=== PATIENT | male | born 1960 | race Caucasian/White ===

== ENCOUNTER 2017-02-02 12:33 | Inpatient (IN) | payer BC, OTHER ==
[~2017-02-02] VITALS: Ht 180.3 cm; Wt 158.8 kg
--- NOTE | 2017-02-02 19:00 | NUR ---
Intake assessment Px seen in the intake office. Px is 56 y/o male, Alert and oriented x4. Px reported to be dependent on ETOH. NKA. On regular diet. Wishes to be on full code. Ambulatory, speech is clear and audible. Px appears to be anxious but cooperative. No PMHx but anxiety. No hx of seizure. Px doesnt take any home medications. VS as follows, JT=539/79, AZ= 98, RR=20, T= 96.9, O2 sat= 96%. Explained unit protocols, and verbalized understanding.
--- NOTE | 2017-02-02 19:17 | NUR ---
Admission Notes Admitted a 56 y/o, male at [facility] unit at 1917H for ETOH dependence. Body search and skin check done, no contraband nor skin issues noted. Px is standing at 5'11' tall with weight of 350 lbs. on a standing scale. BMI is 49. Px is cooperative during assessments. Oriented on floor unit and room. Px is following regular diet, NKA, and wishes to be on full code. Px is alert and oriented x4, ambulatory with steady gait. Speech is clear and audible. Denies any PMHx but anxiety. Appears to be anxious but cooperative. No SOB noted. Respirations are even and unlabored. Abdomen is soft, distended, bowel sounds are in all 4 quadrants. Last BM is today 02/02/2017. No complaints of pain. Mild hand tremors are noted. CIWA is 5. No suicide thoughts or attempt. No hx of seizures or fall. Px able to provide urine sample for drug screen. VS are the following BP= 135/90, MS= 90, RR= 18, O2sat= 96%, T= 97.3. Substance Abuse: 1. ETOH- Px has been drinking since he was 15 y/o. Drinks Vodka 1 liter daily for the past 3 weeks. Last intake is today 02/02/2017 around 10AM of Vodka 1 pint. Tx Hx: 1. [facility] August 2015 stayed for 30 days 2. [facility] September 2015 another 30 days 3. [facility] 2016 stayed for 8 days Px denies being hospitalized in the last 30 days. Longest sobriety was March 2016 for 6 months. Px reports increased anxiety and hand tremors if not influenced by ETOH. Px is non smoker. Px refused pneumonia vaccine. Flu is out of season. Px's primary doctor in [facility] is Dr. Dick Mullen. Px has PCP in [place] but can't recall the name. Urine drug screen came back positive for ETOH at 0.27. Px on fall precaution. All needs met. Safety precautions are in place, bed placed in lowest, side rails up 2x, call light within px's reach. Will continue to monitor.
[2017-02-02 20:00] VITALS: BP 135/90
--- NOTE | 2017-02-02 20:53 | NUR ---
Ativan STAT Dr. Berry seen and examined the px with order Ativan 1mg 2 tabs PO stat given at 2052H. Px tolerated, will continue to monitor.
[2017-02-02 20:56] LABS: *AMPHETAMINE, URINE NEGATIVE (NEGATIVE); *BARBITURATE, URINE NEGATIVE (NEGATIVE); *CANNABINOID, URINE NEGATIVE (NEGATIVE); *COCCAINE, URINE NEGATIVE (NEGATIVE); *OPIATE, URINE NEGATIVE (NEGATIVE); *PHENCYCLIDINE SCREEN,URINE NEGATIVE (NEGATIVE)
[2017-02-02 21:33] LABS: BASOPHILS % (AUTO) 0.5 % (0.0-2.0); HEMOGLOBIN 15.8 G/DL (14.0-18.0); LYMPHOCYTES # (AUTO) 0.5 K/UL (0.8-4.8); LYMPHOCYTES % (AUTO) 11.6 % (20.5-51.5); MEAN CORPUSCULAR HEMOGLOBIN 32.1 UUG (27.0-31.0); MEAN CORPUSCULAR HGB CONC 35 g/dL (32.0-37.0); MEAN CORPUSCULAR VOLUME 91.7 FL (82.0-92.0); MONOCYTES # (AUTO) 0.5 K/UL (0.1-1.30); NEUTROPHILS # (AUTO) 3.7 K/UL (1.8-8.9); NEUTROPHILS % (AUTO) 75.9 % (38.5-71.5); PLATELET COUNT (AUTO) 79 K/UL (150-450); RED BLOOD CELL COUNT(AUTO) 4.91 MIL/UL (4.7-6.1); WHITE BLOOD COUNT (AUTO) 4.7 K/UL (4.0-11.2)
[2017-02-02 22:17] LABS: BILIRUBIN,TOTAL 1.9 mg/dL (0.2-1.0); CREATININE 0.8 mg/dL (0.6-1.3); MAGNESIUM 1.9 mg/dL (1.8-2.4); POTASSIUM 3.5 mmol/L (3.5-5.1); TOTAL PROTEIN, SERUM 7.5 g/dL (6.4-8.2)
[2017-02-02 22:38] LABS: BAND % (MANUAL) 10 % (0-10); LYMPHOCYTES % (MANUAL) 14 % (20-40); MONOCYTES % (MANUAL) 13 % (2-10); NEUTROPHILS % (MANUAL) 63 % (42-75)
[2017-02-03] VITALS (7 sets, daily range): BP systolic 134–189; BP diastolic 77–98
--- NOTE | 2017-02-03 00:05 | NUR ---
PRN meds Px complained of difficulty sleeping. CIWA 9 at 0000H. Ativan 1mg 1 tab, Benadryl 50 mg 1 cap, Clonidine 0.1mg given PO as PRN meds. BP= 139/80, CO= 104, RR= 19, T= 98.7, O2 sat= 97%. Px tolerated, will continue to monitor.
--- NOTE | 2017-02-03 00:59 | NUR ---
PRN Trazodone Px continue to struggle sleeping. Trazodone 50mg 1 tab given PO as PRN med. Px tolerated, will continue to monitor.
--- NOTE | 2017-02-03 03:25 | NUR ---
PRN meds Px continue to complained of difficulty of sleeping, burning and tingling sensation on both feet, increase anxiety, sweats noted and hand tremors. CIWA is 16. Ibuprofen 400mg 1 tab and Ativan 1 mg 2 tabs given PO as PRN meds. Will continue to monitor.
--- NOTE | 2017-02-03 03:30 | NUR ---
SpO2/Oxygen Therapy: Pt noted to be coughing and restless; upon assessment SpO2 on RA is 92% and HR 90. Pt placed on 2L O2 via NC and SpO2 increased to 96%. Pt reports that he has a C-PAP that he brought with him to [place], but that it requires adjustment. Lungs are CTA throughout. made aware.
--- NOTE | 2017-02-03 06:02 | NUR ---
Valium 10mg ONCE: Patient complains of restlessness, severe anxiety and agitation. Patient noted to be diaphoretic and bedding is damp. Pt noted with moderate tremor. CIWA is 18. Administered Valium 10mg ONCE. Will reassess in one hour. Addendum: 02/03/17 at 0638 by ARLEEN PHIPPS RN Medication administered by primary nurseJoseph.
--- NOTE | 2017-02-03 07:00 | NUR ---
End of Shift Notes Px a 56 y/o, male admitted for ETOH dependence. Px is following regular diet, NKA, and on full code. Ps is alert and oriented x4, ambulatory with steady gait. Speech is clear and audible. During the shift, Appears to be anxious but cooperative. During the shift Px complained of difficulty of sleeping, burning, pins and needles on both feet 4/10, increased anxiety and hand tremors. Ativan 1mg 1 tab, Benadryl 50mg 1 cap, Catapres 0.1mg 1 tab given PO as PRN meds at 0005. Trazodone 50mg 1 tab given PO as PRN at 0059. Ativan 1mg 2 tabs, and Motrin 400mg 1 tab given PO as PRN at 0325. Diazepam 10mg 1 tab given PO as PRN med at Px on fall precaution. All needs met. Safety precautions are in place, bed placed in lowest, side rails up 2x, call light within px's reach. Oral intake of 1L, voided 2x, No BM. Slept for 3.5 hrs. Latest CIWA 10. Will continue to monitor.
--- NOTE | 2017-02-03 07:01 | NUR ---
Valium Reassessment: Pt reports mild decrease in anxiety, and decrease in agitation and restlessness. Pt continues to reports diaphoresis and and tremor. CIWA decreased from 18 to 10 one hour after Valium 10mg administration.
--- NOTE | 2017-02-03 07:32 | NUR ---
Start of Shift Notes: Received patient in his room. Alert and oriented x 4. Verbally responsive. Appears anxious with mild sweats and noted with tremors. Respirations even and unlabored. No SOB noted. Skin warm and dry to touch. Abdomen soft and non-distended with (+) BS in all 4 quadrants. No complains of N/V/D or constipation noted. No complains of abdominal discomfort noted. Bladder non-distended. Voids independently. Ambulatory ad kym with steady gait. Patient is a 56 year old male admitted for ETOH dependence. Prior to admission, patient was using 1L of Vodka daily x 3 weeks. Has past medical hx of anxiety and sleep apnea. Uses CPAP at home. O2 saturation at 95% RA. NKA. FULL CODE. Regular diet. Educated patient on his current plan of care and his medication regimen. Encouraged oral fluid intake and encouraged group participation to learn new skills to prevent relapse. Will continue to monitor.
--- NOTE | 2017-02-03 08:18 | NUR ---
Clonidine 0.1mg PO given: Patient noted with BP 189/98, gross tremors, sweating and with noted anxiety and mild agitation. Medicated patient with Clonidine 0.1mg PO as ordered. Will monitor for effectiveness.
--- NOTE | 2017-02-03 09:18 | NUR ---
Re-assessment: Patient's BP 150/83. Less sweating, less anxiety and less tremors noted.
--- NOTE | 2017-02-03 11:05 | NUR ---
ENDORSEMENT Rcvd endorsement from dipti, client is a 56 y/o male for alcohol withdrawal. last CIWA 13, client received a one time dose of Ativan 2mg, need to be reassessed. Client is in room, a/o x 4, he is in RA c/ spO2 @ 95%, he presents with anxious mood, flat affect, gross tremors and clammy skin noted. HOB 45 degrees. Call light within reach. Side rails x 2 up/padded. Will continue to monitor.
--- NOTE | 2017-02-03 11:33 | NUR ---
Reassessment One time Ativan 2mg CIWA 9, client appears less anxious. Will continue to monitor.
--- NOTE | 2017-02-03 12:08 | NUR ---
PRN Zofran 4mg SL for nausea, no episodes of emesis. Call light within reach. Will continue to monitor.
--- NOTE | 2017-02-03 13:08 | NUR ---
Reassessment PRN Zofran 4mg SL effective, relief from nausea. Call light within reach. Will continue to monitor.
--- NOTE | 2017-02-03 18:15 | NUR ---
PRN Ativan 1mg administered for anxiety, agitation, flushed face, clammy skin, gross tremors CIWA 14, and Clonidine 0.1mg for increased Bp 168/103. Call light within reach. Will continue to monitor.
--- NOTE | 2017-02-03 19:15 | NUR ---
END OF SHIFT & Reassessment PRN Ativan 1mg, Clonidine 0.1mg Endorsed client to incoming nurse, client is a 56 y/o male for alcohol withdrawal. last CIWA 11 @ 1700. Client received a one time dose of Ativan 2mg for CIWA 13, after an hour CIWA 9, client appears less anxious, PRN Zofran 4mg for nausea, PRN Clonidine 0.1mg for BP 189/98, effective BP 150/83. PRN Ativan 1mg administered for anxiety, agitation, flushed face, clammy skin, gross tremors CIWA 14, and Clonidine 0.1mg for increased Bp 168/103, noted effective, CIWA 8, bp 149/90. Client is in bed, HOB @ 45, he is a/o x 4. Client is on 5 day Ativan taper for management of withdrawal symptoms, tolerating well. Adequate PO fluid intake 2500mL, void x 3, stool x 2. Client was not compliant with group therapy d/t withdrawal symptoms. Call light within reach. Side rails x 2 up/padded. Will continue to monitor.
--- NOTE | 2017-02-03 21:00 | NUR ---
Start of Shift Notes Received a 56 y/o, male admitted for ETOH dependence. Px is following regular diet, NKA, and on full code. Px is alert and oriented x4, ambulatory with unsteady gait as assessed. Speech is clear and audible. Appears to be anxious but cooperative. Hand tremors are still evident.respirations are even unlabored. Suggested to take shower. Safety precautions are in place, bed placed in lowest, side rails up 2x, call light within px's reach. CIWA 11. Will continue to monitor
--- NOTE | 2017-02-03 22:00 | NUR ---
Bed transfer Px was transferred to room 329 A for the easier access of the bathroom via px's bed. Will continue to monitor.
--- NOTE | 2017-02-03 22:34 | NUR ---
PRN Ativan Dr. Berry seen and examined the px, with order to give Ativan 1mg 2 tabs PO as PRN, carried out. Will continue to monitor.
[2017-02-04] VITALS (7 sets, daily range): BP systolic 134–172; BP diastolic 71–111
--- NOTE | 2017-02-04 | NUR ---
BiPAP Px was placed on BiPAP by RT. Px can't tolerate the BiPAP mask, px keeps on taking off the mask. BiPAP was discontinued by RT around 0300. Px was put to O2 inhalation at 2 LPM via NC.
--- NOTE | 2017-02-04 03:00 | NUR ---
ICP Px is placed on ICP for both legs with the VTE risk score of 3. We'll continue to monitor.
--- NOTE | 2017-02-04 04:00 | NUR ---
CIWA deferral CIWA deferred due that the px is sleeping, to assess if the px is awake per doctor's order. Px is on O2 at 2 LPM. We'll continue to monitor.
--- NOTE | 2017-02-04 06:29 | NUR ---
PRN Ativan Px reports anxiety was lessened. Px slept for 6hrs but on and off. Px feels heightened and requested to take medicine for him to sleep again. Ativan 1mg, 1 tab given PO as PRN med. We'll continue to monitor.
--- NOTE | 2017-02-04 07:11 | NUR ---
End of Shift Notes Px is a 56 y/o, male admitted for ETOH dependence. Px is following regular diet, NKA, and on full code. During the shift, Px is alert and oriented x4, ambulatory but with unsteady gait as assessed. Non pitting edema noted on right foot. Appears to be anxious but cooperative. Hand tremors are still evident. Dr. Berry seen and examined, Ativan 1mg, 2 tabs given PO as PRN meds at 2234H. Px was placed to BiPAP machine at around 0000H. Px cant tolerate the BiPAP mask, RT discontinued and px continue on O2 inhalation at 2 LPM via NC and px was placed on ICP for both legs at around 0300 for VTE risk score of 3. Oral intake of 1L, voided 2x, No BM. Slept for 6 hrs. Px requested medicine to make him sleep, Atican 1mg, 1 tab given PO as PRN at 0629. Safety precautions are in place, bed placed in lowest, side rails up 2x with pads, call light within px's reach. Last CIWA 7. Will continue to monitor.
--- NOTE | 2017-02-04 07:45 | NUR ---
START OF SHIFT NOTE. 56 y/o, male admitted for ETOH dependence. History of anxiety, sleep apnea with use of CPAP at night. ON regular diet, NKA, and on full code. Received report from night RN with patient noted to be unsteady on feet and with some confusion. Placed on one to one for safety. Pt with tremors, states had hallucinations last night. Pedal edema 3-4+. Elevated legs on 2 pillows. SCD's on. Bed in low position, call light within reach, padded side rails, safety measures in place. Will continue to monitor.
[2017-02-04 08:26] LABS: BASOPHILS % (AUTO) 1.2 % (0.0-2.0); EOSINOPHILS % (AUTO) 1.4 % (0.0-7.0); HEMATOCRIT 42.5 % (40-50); HEMOGLOBIN 14.2 G/DL (14.0-18.0); LYMPHOCYTES # (AUTO) 0.5 K/UL (0.8-4.8); LYMPHOCYTES % (AUTO) 17.9 % (20.5-51.5); MEAN CORPUSCULAR HEMOGLOBIN 30.9 UUG (27.0-31.0); MEAN CORPUSCULAR HGB CONC 33 g/dL (32.0-37.0); MEAN CORPUSCULAR VOLUME 92.7 FL (82.0-92.0); MONOCYTES # (AUTO) 0.4 K/UL (0.1-1.30); MONOCYTES % (AUTO) 14.8 % (0.0-11.0); NEUTROPHILS # (AUTO) 2.1 K/UL (1.8-8.9); NEUTROPHILS % (AUTO) 64.7 % (38.5-71.5); RED BLOOD CELL COUNT(AUTO) 4.59 MIL/UL (4.7-6.1)
[2017-02-04 09:08] LABS: BILIRUBIN,DIRECT 0.7 mg/dL (0.0-0.2); BILIRUBIN,TOTAL 2.7 mg/dL (0.2-1.0); CREATININE 0.8 mg/dL (0.6-1.3); MAGNESIUM 1.4 mg/dL (1.8-2.4); POTASSIUM 4.1 mmol/L (3.5-5.1); TOTAL PROTEIN, SERUM 7.4 g/dL (6.4-8.2)
[2017-02-04 09:40] LABS: PLATELET COUNT (AUTO) 46 K/UL (150-450)
[2017-02-04 09:46] LABS: BAND % (MANUAL) 7 % (0-10); EOSINOPHILS % (MANUAL) 2 % (0-8); LYMPHOCYTES % (MANUAL) 18 % (20-40); MONOCYTES % (MANUAL) 16 % (2-10); NEUTROPHILS % (MANUAL) 57 % (42-75)
--- NOTE | 2017-02-04 10:32 | NUR ---
PRN ADMINISTRATION Pt complaint of nausea. Given Zofran SL PRN.
[2017-02-04 11:08] LABS: HEPATITIS B SURFACE AG Negative (Negative)
--- NOTE | 2017-02-04 11:32 | NUR ---
PRN REASSESSMENT Pt denies nausea after dose of Zofran SL.
--- NOTE | 2017-02-04 18:11 | NUR ---
PRN GIVEN Pt c/o nausea after dinner. No episodes of vomiting was reported. Zofran 4mg SL PRN was given. Will continue to monitor.
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
--- NOTE | 2017-02-04 19:10 | NUR ---
END OF SHIFT NOTE. 56 y/o, male admitted for ETOH dependence. History of anxiety, sleep apnea with use of CPAP at night. ON regular diet, NKA, and on full code. Continues to be unsteady on feet and on one to one for safety. Pt with tremors, denies hallucinations. Oriented x 2 at 0800 and oriented x 3 at 1200 and 1600. Pedal edema 3-4+. Continued to keep legs elevated on 2 pillows when lying down. SCD's on. Using Bipap during nap times. 1610, complaint of nausea, however ate 100 percent dinner. Gave Zofran SL. Will reassess at 1710 for effect. Tolerating Ativan taper with the following scores: COWS score 15 at 0800, COWS score 10 at 1200 and at 1600. Good appetite with intake 100 percent at breakfast and dinner, 50 percent at lunch. Intake 1250 cc, 3 voids, 1 BM. Attended group from 1530 to 1630 via wheelchair with one person assist. Bed in low position, call light in reach, side rails padded, safety measures observed. Report given to night RN. Addendum: 02/05/17 at 1250 by SAMUEL REYES RN ERROR IN DOCUMENTATION Correction CIWA score was 15 at 0800, and 10 at 1200 and 1600. RN incorrectly labeled scores as a COWS score. Also, PRN Zofran was given at 1811 and not at 1610.
--- NOTE | 2017-02-04 19:15 | NUR ---
PRN MEDICATION REASSESSMENT Given Zofran SL for nausea at 1610. Pt currently sleeping on Bipap.
--- NOTE | 2017-02-04 19:20 | NUR ---
Start of Shift Note: Patient is a 56 y/o male admitted on 02/02/17 for ETOH dependence. Patient reported drinking 1 liter of vodka daily for 3 weeks. Patient has PMHx of Anxiety and Sleep Apnea. Pt uses a CPAP machine at night. Patient is on a regular diet with no known food and drug allergies. Full Code status. Patient is on a 5-day Ativan taper and tolerating well. Last CIWA is 10. Pt was given PRN Zofran x2 for nausea and were effective. Patient continues to be on a 1:1 supervision d/t unsteady gait. Patient is alert & oriented to name, place & situation. Patient denies pain/discomfort. Patient presented with complaints of sweating, restlessness and appears to be anxious. Pt with moderate anxiety and noted with bilateral hand tremors. Patient currently awake and denies shortness of breath at this time. CPAP machine at bedside. No nausea noted. Patient denies any hallucinations. Safety measures in place. Bed locked in lowest position. Both side rails up. Call light within pt's reach. Will continue to monitor patient.
--- NOTE | 2017-02-04 23:12 | NUR ---
PRN Hydralazine Patient noted with B/P of 172/96 SC 84. PRN Hydralazine administered as ordered. Will continue to monitor.
[2017-02-05] VITALS (7 sets, daily range): BP systolic 121–156; BP diastolic 71–99
--- NOTE | 2017-02-05 00:12 | NUR ---
PRN Reassessment VS Rechecked. B/P 136/85 NH 91 noted. Patient asleep with CPAP connected to patient. Patient not in any s/s of distress. Will continue to monitor patient.
--- NOTE | 2017-02-05 01:42 | NUR ---
PRN Ativan Patient presented with gross tremors, moderate anxiety & sweating. CIWA 9 noted. No shortness of breath noted. PRN Ativan 1mg administered as ordered. Will reassess in 1 hour. Will continue to monitor patient.
--- NOTE | 2017-02-05 02:25 | NUR ---
Pt requested to be removed off CPAP at this time and is now on room air. No resp. distress noted at this time.
--- NOTE | 2017-02-05 02:42 | NUR ---
PRN Reassessment Pt still noted with gross tremors. Pt complained of nausea with no episode of vomiting & slight decrease in anxiety noted. CIWA 9 still noted. Will continue to monitor.
--- NOTE | 2017-02-05 02:44 | NUR ---
PRN Zofran Patient complains of nausea with no episode of vomiting. PRN Zofran administered SL as ordered. Will reassess in 1 hour.
--- NOTE | 2017-02-05 03:50 | NUR ---
PRn Ativan & Zofran Reassessment Pt appears restless in bed. Patient still complains of anxiety & slight sweating. Pt noted with fine tremors. No hallucinations noted. Pt verbalized improved nausea after Zofran administration. CIWA 6 noted at this time. PRN Ativan 1mg administered as ordered. Will continue to monitor.
--- NOTE | 2017-02-05 04:24 | NUR ---
PRN Robitussin Patient noted with non productive cough. PRN Robitussin administered as ordered. Will reassess for effectiveness of medication. Will continue to monitor.
--- NOTE | 2017-02-05 05:24 | NUR ---
Pt asleep in bed with CPAP on at prescribed settings. No s/s of distress noted. No coughing noted at this time. Pt continues on a 1:1 supervision. Will continue to monitor patient.
--- NOTE | 2017-02-05 06:11 | NUR ---
PRn Hydralazine & Tessalon Patient still noted with non-productive cough. PRN Tessalon administered as ordered. Vitals checked and noted with a B/P of 152/92, VA 100. Pt also given PRN Hydralazine as ordered. Will reassess in 1 hour. Will continue to monitor patient.
--- NOTE | 2017-02-05 07:24 | NUR ---
End of Shift Note: Patient is a 56 y/o male admitted on 02/02/17 for ETOH dependence. Patient reported drinking 1 liter of vodka daily for 3 weeks. Patient has PMHx of Anxiety and Sleep Apnea. Pt uses a CPAP machine at night. Patient is on a regular diet with no known food and drug allergies. Full Code status. Patient is on a 5-day Ativan taper and tolerating well. Last CIWA is 6 @ 0400. Pt was given PRN Ativan 2x, Hydralazine 2x, Zofran, Robitussin & Tessalon during my shift. Patient remains compliant with medications and treatment plan. Pt still noted to be unsteady and continues on a 1:1 supervision for safety. Pt continues to be on CPAP at night to maintain O2Sat >95%. Edema noted on both lower extremities, SCD on and keep lower extremities elevated while in bed until edema subsides. Pt stable at this time. All needs have been met. All safety measures in place per hospital policy. Bed in lowest position, side rails up x2, call-light within reach. Pt slept for intermittently for a total of 5 hours. Pt consumed 1000 ml of fluids. Voided 4x with 1x bowel movement. All needs attended & met. Safety measures in place. Will continue to monitor patient.
[2017-02-05 07:30] LABS: BASOPHILS % (AUTO) 0.5 % (0.0-2.0); BILIRUBIN,DIRECT 1.3 mg/dL (0.0-0.2); BILIRUBIN,TOTAL 2.4 mg/dL (0.2-1.0); CREATININE 0.9 mg/dL (0.6-1.3); EOSINOPHILS % (AUTO) 1.1 % (0.0-7.0); HEMATOCRIT 43.1 % (40-50); HEMOGLOBIN 14.8 G/DL (14.0-18.0); LYMPHOCYTES # (AUTO) 0.6 K/UL (0.8-4.8); LYMPHOCYTES % (AUTO) 16.9 % (20.5-51.5); MAGNESIUM 1.5 mg/dL (1.8-2.4); MEAN CORPUSCULAR HEMOGLOBIN 31.7 UUG (27.0-31.0); MEAN CORPUSCULAR HGB CONC 34 g/dL (32.0-37.0); MEAN CORPUSCULAR VOLUME 92.2 FL (82.0-92.0); MONOCYTES # (AUTO) 0.5 K/UL (0.1-1.30); MONOCYTES % (AUTO) 12.7 % (0.0-11.0); NEUTROPHILS # (AUTO) 2.6 K/UL (1.8-8.9); NEUTROPHILS % (AUTO) 68.8 % (38.5-71.5); PHOSPHOROUS 3.6 mg/dL (2.5-4.9); POTASSIUM 3.6 mmol/L (3.5-5.1); RED BLOOD CELL COUNT(AUTO) 4.67 MIL/UL (4.7-6.1); TOTAL PROTEIN, SERUM 7.8 g/dL (6.4-8.2); WHITE BLOOD COUNT (AUTO) 3.7 K/UL (4.0-11.2)
[2017-02-05 07:47] LABS: PLATELET COUNT (AUTO) 47 K/UL (150-450)
--- NOTE | 2017-02-05 08:00 | NUR ---
START OF SHIFT NOTE 56 y/o, male admitted for ETOH dependence. History of anxiety, sleep apnea with use of CPAP at night. ON regular diet, NKA, and on full code. Received report from night. Pt continues on one to one monitoring for safety. Pt with hand tremors, denies hallucinations. Oriented x3. Pt requesting cough medicine, states sputum clear. RN to follow up with time of last dose of PRN cough medications. Bed in low position, call light within reach, padded side rails, safety measures in place. Will continue to monitor.
[2017-02-05 08:38] LABS: BAND % (MANUAL) 9 % (0-10); EOSINOPHILS % (MANUAL) 1 % (0-8); LYMPHOCYTES % (MANUAL) 17 % (20-40); MONOCYTES % (MANUAL) 12 % (2-10); NEUTROPHILS % (MANUAL) 61 % (42-75)
--- NOTE | 2017-02-05 10:43 | NUR ---
Therapist prompted client about group times. Client stated he would attend both groups if he feels well.
--- NOTE | 2017-02-05 11:04 | NUR ---
PRN MEDICATION ADMINISTRATION Pt complaint of nausea. Given Zofran SL.
--- NOTE | 2017-02-05 12:04 | NUR ---
PRN MEDICATION REASSESSMENT RN assessing for effect of Zofran for nausea. Pt sleeping on Bipap.
--- NOTE | 2017-02-05 13:16 | NUR ---
PRN MEDICATION ADMINISTRATION Pt with persistent cough. Given Mu aguirre.
--- NOTE | 2017-02-05 13:23 | NUR ---
PRN MEDICATION ADMINISTRATION Blood pressure 130/98. Dr. Berry notified and hydralazine prn dose Oked by .
--- NOTE | 2017-02-05 14:16 | NUR ---
PRN MEDICATION REASSESSMENT Pt with decreased cough post dose of Tessalon perles.
--- NOTE | 2017-02-05 16:55 | NUR ---
LARA [address] Berry, Ativan 2 mg given instead of the scheduled 1 mg Ativan.
--- NOTE | 2017-02-05 16:55 | NUR ---
PRN MEDICATION ADMINISTRATION Pt complaint of cold symptoms of cough and headache. Gave Motrin and Robitussin.
--- NOTE | 2017-02-05 17:55 | NUR ---
PRN MEDICATION REASSESSMENT Pt was given Motrin and Robitussin for cold and cough symptoms. Pt now sleeping with CPAP in place.
--- NOTE | 2017-02-05 19:15 | NUR ---
Start of Shift Note: Patient is a 56 y/o male admitted on 02/02/17 for ETOH dependence. Patient reported drinking 1 liter of vodka daily for 3 weeks. Patient has PMHx of Anxiety and Sleep Apnea. Pt uses a CPAP machine at night. Patient is on a regular diet with no known food and drug allergies. Full Code status. Patient is on a 5-day Ativan taper and tolerating well. Last CIWA is 15 @ 1600. Pt was given PRN Hydralazine, Tessalon, Zofran, Robitussin & Motrin during day shift. Patient continues to be on a 1:1 supervision for safety. Patient is alert & oriented to name, place & situation. Patient denies pain/discomfort. Patient currently laying in bed with CPAP on. Pt noted with moderate anxiety ang mild agitationand noted with bilateral hand tremors. Pt denies any pain/discomfort at this time. No nausea noted. Patient denies any hallucinations. Safety measures in place. Bed locked in lowest position. Both side rails up. Call light within pt's reach. Will continue to monitor patient.
--- NOTE | 2017-02-05 19:38 | NUR ---
END OF SHIFT NOTE 56 y/o, male admitted for ETOH dependence. History of anxiety, sleep apnea with use of CPAP at night. ON regular diet, NKA, and on full code. Received report from night. Pt continues on one to one monitoring for safety. BP 130/98 at 1200, given hydralazine prn at 1323. At 1530, BP 156/99, however pt was exerting himself to get out of bed at time of measurement. Pt was given scheduled clonidine at 1530. At 1630, BP 134/85. CIWA [address] Berry notified. Per , pt received 2 mg Ativan po rather than the scheduled 1 mg Ativan po. 1800, pt sleeping with CPAP. 1900 call light in reach, bed low in position, safety measures in place. Report given to night RN.
--- NOTE | 2017-02-05 21:26 | NUR ---
PRN Tessalon Patient noted with a productive cough. PRN Tessalon administered as ordered. Will continue to monitor patient.
[2017-02-06] VITALS: BP 118/75
[2017-02-06 04:00] VITALS: BP_SYST 104; BP_SYST 136; BP_DIAS 66; BP_DIAS 77
--- NOTE | 2017-02-06 06:15 | NUR ---
PRN Robitussin & Zofran Patient complains of nausea & has been coughing. PRN Robitussin and Zofran administered as ordered. Will continue to monitor.
[2017-02-06 06:57] LABS: MAGNESIUM 1.8 mg/dL (1.8-2.4); POTASSIUM 3.4 mmol/L (3.5-5.1)
--- NOTE | 2017-02-06 07:15 | NUR ---
PRN Reassessment Patient verbalized improved nausea & decrease in coughing noted. Will continue to monitor patient.
--- NOTE | 2017-02-06 07:26 | NUR ---
End of Shift Note: Pt had an uneventful night. Pt continues on his Ativan taper and tolerating well. Last CIWA is 8. Pt was given PRN Tessalon and Robitussin for cought and Zofran for nausea during my shift. Patient remained stable and vitals remained WNL. Pt slept well for a total of 7 hours. Pt is on CPAP while asleep. Pt continues on a 1:1 supervision for unsteady gait. Pt remained compliant with medications and treatment. Pt slept for a total of 7 hours. Pt consumed 1237 ml of fluids. Voided 3x with 1x bowel movement. All needs have been met. All safety measures in place per hospital policy. Bed in lowest position, side rails up x2, call-light within reach. Will continue to monitor.
[2017-02-06 08:00] VITALS: BP 153/93
--- NOTE | 2017-02-06 08:00 | NUR ---
START OF SHIFT NOTE Received report from night nurse, 56 year old male admitted for ETOH dependence. Patient reported drinking 1 liter of vodka daily for 3 weeks. Patient has PMH of Anxiety and Sleep Apnea. Pt uses a CPAP machine at night. Patient is cont on a 5-day Ativan taper. Per endorsement pt received PRN Zofran/Robitussin/Tessalon effective per night nurse. Received pt alert oriented x4, skin intact warm and dry to touch. Educated pt with plan of the day and medications regimen with good verbal understanding. All safety measures in place, Call light within reach. Will cont to monitor.
[2017-02-06 08:10] LABS: HEMATOCRIT 42.7 % (40-50); HEMOGLOBIN 14.6 G/DL (14.0-18.0); MEAN CORPUSCULAR HEMOGLOBIN 31.7 UUG (27.0-31.0); MEAN CORPUSCULAR VOLUME 92.9 FL (82.0-92.0); WHITE BLOOD COUNT (AUTO) 3.4 K/UL (4.0-11.2)
[2017-02-06 08:11] LABS: MEAN CORPUSCULAR HGB CONC 34 g/dL (32.0-37.0)
[2017-02-06 08:12] LABS: NEUTROPHILS % (AUTO) 71.3 % (38.5-71.5); PLATELET COUNT (AUTO) 61 K/UL (150-450)
[2017-02-06 08:13] LABS: BASOPHILS % (AUTO) 0.3 % (0.0-2.0); MONOCYTES % (AUTO) 16.4 % (0.0-11.0)
[2017-02-06 08:15] LABS: LYMPHOCYTES # (AUTO) 0.4 K/UL (0.8-4.8); MONOCYTES # (AUTO) 0.6 K/UL (0.1-1.30); NEUTROPHILS # (AUTO) 2.4 K/UL (1.8-8.9)
[2017-02-06 10:31] LABS: BAND % (MANUAL) 9 % (0-10); LYMPHOCYTES % (MANUAL) 15 % (20-40); MONOCYTES % (MANUAL) 7 % (2-10); NEUTROPHILS % (MANUAL) 69 % (42-75)
[2017-02-06 12:00] VITALS: BP 160/100
--- NOTE | 2017-02-06 12:49 | NUR ---
PRN HYDRALAZINE Pt's blood pressure noted 160/100, HR-97. PRN Hydralazine 50mg Po administered as ordered. Will cont to monitor for effectiveness.
--- NOTE | 2017-02-06 13:49 | NUR ---
HYDRALAZINE REASSESSMENT Upon reassessment B/P /95, HR-92. Medication effective.
[2017-02-06 16:00] VITALS: BP 148/90
--- NOTE | 2017-02-06 19:08 | NUR ---
END OF SHIFT NOTE Pt noted with elevated blood pressure 160/100. Pt was given PRN Hydralazine 50mg Po effective 148/95. pt cont with Ativan taper tolerating well. Pt able to walk independently with steady gait. Pt still cont with 1:1 for safety. Vital signs WNL. Pt attend group and activities. Encourage Po fluids. last CIWA-6. All safety measures in place, call light within reach. Pt endorsed to night nurse in stable condition.
--- NOTE | 2017-02-06 19:15 | NUR ---
START OF SHIFT Received 56 year old male admitted on 02/02/17 for ETOH dependency. Pt is full code with NKA. He reports a PMHx of anxiety, sleep apnea which he uses CPAP at night. He reports using ETOH (vodka) 1L daily for 3 weeks. Last dose was 1 pint on 02/02/17. He is placed on 5 day Ativan taper and tolerating well. Per endorsement, pt noted with increased BP. He received Hydralazine 50 mg. He is on 1:1 For unsteady gait. Pt is alert and oriented x4, complains of fatigue and cough. Safety measures in place. Will monitor.
[2017-02-06 20:00] VITALS: BP 150/104
--- NOTE | 2017-02-06 21:06 | NUR ---
PRN ROBITUSSIN Pt complains of cough. PRN Robitussin administered as ordered. Will monitor effectiveness.
--- NOTE | 2017-02-06 22:06 | NUR ---
PRN ROBITUSSIN REASSESSMENT PRN medication effective. No complaints of coughing noted. Will continue to monitor.
[2017-02-07] VITALS: BP 108/85
--- NOTE | 2017-02-07 | NUR ---
CIWA DEFERRED CIWA deferred d/t pt lying in bed with eyes closed noted to be asleep. Safety measures in place. Will monitor.
[2017-02-07 04:00] VITALS: BP 122/75
--- NOTE | 2017-02-07 04:00 | NUR ---
CIWA DEFERRED CIWA deferred d/t pt lying in bed with eyes closed noted to be asleep. Safety measures in place. Will monitor.
--- NOTE | 2017-02-07 07:16 | NUR ---
END OF SHIFT Pt is a 56 year old male admitted on 02/02/17 for ETOH dependency. Pt is full code with NKA. He reports a PMHx of anxiety, sleep apnea which he uses CPAP at night. He continues on 5 day Ativan taper and tolerating well. He continues on 1:1 for unsteady gait. At 2103 he received PRN Robitussin. He slept a total of 8 hrs, Intake: 1390 mL, Void: x3, BM:x2, CIWA:6. Pt remains alert and oriented x4, complains of fatigue and cough. Safety measures in place. Endorsed to oncoming shift.
[2017-02-07 08:00] VITALS: BP 121/74
--- NOTE | 2017-02-07 08:05 | NUR ---
START OF SHIFT NOTE Received report from night nurse, 56 year old male admitted for ETOH dependence. Patient reported drinking 1 liter of vodka daily for 3 weeks. Patient has PMH of Anxiety and Sleep Apnea. Pt uses a CPAP machine at night. Patient is cont on a 5-day Ativan taper. Per endorsement pt received PRN Robitussin effective per night nurse, slept for 8 hours, last CIWA-6. Received pt alert oriented x4, skin intact warm and dry to touch. Educated pt with plan of the day and medications regimen with good verbal understanding. All safety measures in place, Call light within reach. Will cont to monitor.
[2017-02-07 08:34] LABS: HEMATOCRIT 43.8 % (40-50); HEMOGLOBIN 14.6 G/DL (14.0-18.0); MEAN CORPUSCULAR HEMOGLOBIN 31.3 UUG (27.0-31.0); MEAN CORPUSCULAR HGB CONC 33 g/dL (32.0-37.0); MEAN CORPUSCULAR VOLUME 93.6 FL (82.0-92.0); PLATELET COUNT (AUTO) 82 K/UL (150-450); RED BLOOD CELL COUNT(AUTO) 4.68 MIL/UL (4.7-6.1); WHITE BLOOD COUNT (AUTO) 3.4 K/UL (4.0-11.2)
[2017-02-07 08:35] LABS: LYMPHOCYTES % (AUTO) 24.8 % (20.5-51.5); NEUTROPHILS % (AUTO) 47.1 % (38.5-71.5)
[2017-02-07 08:36] LABS: BASOPHILS % (AUTO) 0.6 % (0.0-2.0); EOSINOPHILS # (AUTO) 0.1 K/uL (0.0-0.7); EOSINOPHILS % (AUTO) 3.7 % (0.0-7.0); LYMPHOCYTES # (AUTO) 0.8 K/UL (0.8-4.8); MONOCYTES # (AUTO) 0.8 K/UL (0.1-1.30); MONOCYTES % (AUTO) 23.8 % (0.0-11.0); NEUTROPHILS # (AUTO) 1.6 K/UL (1.8-8.9)
[2017-02-07 08:58] LABS: BILIRUBIN,DIRECT 0.7 mg/dL (0.0-0.2); BILIRUBIN,TOTAL 1.4 mg/dL (0.2-1.0); CREATININE 0.7 mg/dL (0.6-1.3); MAGNESIUM 2.3 mg/dL (1.8-2.4); POTASSIUM 3.5 mmol/L (3.5-5.1); TOTAL PROTEIN, SERUM 7.4 g/dL (6.4-8.2)
[2017-02-07 09:31] LABS: EOSINOPHILS % (MANUAL) 6 % (0-8); LYMPHOCYTES % (MANUAL) 35 % (20-40); MONOCYTES % (MANUAL) 4 % (2-10); NEUTROPHILS % (MANUAL) 55 % (42-75)
[2017-02-07 12:00] VITALS: BP 134/81
[2017-02-07 16:00] VITALS: BP 148/93
--- NOTE | 2017-02-07 17:49 | NUR ---
PRN VISTARIL Pt was c/o of anxiety and agitation, Pt provided with non pharmacological intervention with no relief. PRN Vistaril 50mg administered as ordered. Will cont to monitor for effectiveness.
--- NOTE | 2017-02-07 18:49 | NUR ---
VISTARIL REASSESSMENT Pt reported medication effective anxiety and agitation subside.
--- NOTE | 2017-02-07 19:20 | NUR ---
END OF SHIFT NOTE Pt presented with anxiety, agitation. Pt was given PRN Vistaril 50mg Po noted to be effective. Pt was evaluated by Physical therapist and pt was able to walk with steady gait. Pt was d/c from 1:1. Pt remained compliant with treatment and medications. Vital signs WNL. Encourage Po fluids. last COWS-5. All safety measures in place, call light within reach. Pt endorsed to night nurse in stable condition.
--- NOTE | 2017-02-07 19:21 | NUR ---
Start of shift note Received report from day shift nurse. Pt is a 56 yo male, A+Ox4, presenting to [facility] for ETOH dependence. Pt has NKA, is on Full Code status, and on Regular diet. Pt has HX of Anxiety and Sleep apnea with CPAP. Pt is on Fall and Seizure precautions. Pt is on 5 day Ativan taper, tolerated well. No s/s of distress noted at this time. Respirations even and unlabored. Will continue to monitor.
[2017-02-07 20:40] VITALS: BP 119/69
[2017-02-08 00:22] VITALS: BP 110/79
[2017-02-08 04:32] VITALS: BP 130/98
[2017-02-08 08:00] VITALS: BP 131/91
--- NOTE | 2017-02-08 08:00 | NUR ---
56 year old male, admitted to ETOH dependence. History of anxiety and sleep apnea with use of CPAP at home. Using CPAP at night while inpatient. Seizure and Fall precautions in place. Bed in low position, side rails up x 2 and padded. SCD's off due to Pt up and ambulating. States he had episode of auditory hallucination of talking with people who were not in the room, denies visual hallucination. Currently without hallucinations. RN will notify MD. Ambulating in [place], good appetite, denies nausea, moderate tremors, alert and oriented. Will continue to monitor.
[2017-02-08 12:00] VITALS: BP 133/87
--- NOTE | 2017-02-08 12:31 | NUR ---
PRN MEDICATION ADMINISTRATION Pt reports anxiety 12/29. Gave Vistaril PRN.
[2017-02-08 18:12] VITALS: BP 123/84
--- NOTE | 2017-02-08 19:24 | NUR ---
END OF SHIFT Pt 56 y/o male admitted etoh dependence. Pt alert and oriented to name, place, and time. [place]. Skin warm and slightly moist to touch. Respirations even and unlabored. Bilateral hand tremors noted slightly. Pt observed mostly isolative to room throughout the day. Pt attended group activity. Pt medication compliant and tolerated well. No ASE noted. Pt was seen by MD today. Bed on lowest position with side rails x2 up for safety. Call light within reach. No distress noted at this time.
[2017-02-08 20:00] VITALS: BP 127/80
--- NOTE | 2017-02-08 20:00 | NUR ---
Start of shift note Received a 56 y/o male, admitted 02/02/2017 for ETOH dependence. A+Ox4. Pt has NKA, is on Full Code status, and on Regular diet. Pt has HX of Anxiety and Sleep apnea with CPAP. Pt is on Fall and Seizure precautions. Pt is on 5 day Ativan taper, tolerated well. During the rounds at 2000, no complaints received. No s/s of distress noted at this time. Respirations even and unlabored. Well continue to monitor.
[2017-02-09] VITALS (8 sets, daily range): BP systolic 98–144; BP diastolic 53–85
--- NOTE | 2017-02-09 04:00 | NUR ---
CIWA deferred CIWA assessment deferred at 0000 and 0400 due to the px is sleeping, to assess if the px is awake per doctor's order. We'll continue to monitor.
--- NOTE | 2017-02-09 07:31 | NUR ---
End of shift note 56 y/o male, admitted for ETOH dependence. A+Ox4. Pt has NKA, is on Full Code status, and on Regular diet. Pt has HX of Anxiety and Sleep apnea with CPAP. Pt is on Fall and Seizure precautions. Pt is on 5 day Ativan taper, tolerated well. During the shift, no complaints received. No PRN meds given. No s/s of distress noted at this time. Respirations even and unlabored. Oral intake of 1,200 ml, voided 2x, No BM. Slept for 6 hrs. Well continue to monitor.
--- NOTE | 2017-02-09 08:00 | NUR ---
START OF SHIFT NOTE. 56 year of male admitted 02/02/17 to [facility] for alcohol use disorder/ alcohol dependence. History hypertension, acute alcoholic hepatitis, thrombocytopenia, leukopenia, hyperglycemia, mood disorder with possible bipolar disorder, obstructive sleep apnea on home CPAP. History of cocaine use disorder in remission. Received report from night RN. Per night RN report, Pt last CIWA 8 at 8 PM last night, no PRN medications given, used CPAP last night and slept 6 hours. On 729 patient rounds, Pt sleeping with CPAP in place, respirations regular and unlabored. Bed in low position and locked, side rails up x 2 and padded, call light in reach, seizure and fall precautions in place. Will continue to monitor.
--- NOTE | 2017-02-09 14:13 | NUR ---
PRN Robitussin Plain Sugar Free 200mg PO administered for cough, will continue to monitor. Call light within reach.
--- NOTE | 2017-02-09 15:13 | NUR ---
Reassessment PRN Robitussin Plain Sugar Free 200mg effective, client sound asleep, easy to arouse, RR 18 even, non-labored. Call light within reach.
[2017-02-09] MEDS ORDERED: OXCA150T5 PO (18:47)
[2017-02-09] MEDS ORDERED: HYDR12.517 PO (18:47)
[2017-02-09] MEDS ORDERED: GABA-536 PO (18:47)
[2017-02-09] MEDS ORDERED: LISI-603 PO (18:47)
[2017-02-09] MEDS ORDERED: HYDR-3895 PO (18:47)
[2017-02-09] MEDS ORDERED: OXCA300T4 PO (18:47)
[2017-02-09] MEDS ORDERED: AMLO5TAB2 PO (18:47)
[2017-02-09] MEDS ORDERED: CLON0.2T12 PO (18:47)
[2017-02-09] MEDS ORDERED: BUPR-96 PO (18:47)
[2017-02-09] MEDS ORDERED: TRAZ-144 PO (18:47)
[2017-02-09] MEDS ORDERED: THIA100T13 PO (18:50)
[2017-02-09] MEDS ORDERED: MULT-24 PO (18:50)
[2017-02-09] MEDS ORDERED: FOLI1TAB16 PO (18:50)
--- NOTE | 2017-02-09 19:04 | NUR ---
END OF SHIFT NOTE 56 year of male admitted 02/02/17 to [facility] for alcohol use disorder/ alcohol dependence. History hypertension, acute alcoholic hepatitis, thrombocytopenia, leukopenia, hyperglycemia, mood disorder with possible bipolar disorder, obstructive sleep apnea on home CPAP. History of cocaine use disorder in remission. CIWA 4 at 0939. CIWA 5 at 1222. CIWA 4 at 1630. Pt states he is discharging tomorrow to [facility]. Report given to night RN. Bed in low position and locked, side rails up x 2 and padded, call light in reach, seizure and fall precautions in place. Will continue to monitor.
--- NOTE | 2017-02-09 19:10 | NUR ---
Start of shift Patient received. Patient is in his bed, awake, alert and verbally responsive. Breathing even and non labored. No signs of pain or discomfort noted. Patient is a 56 year old male admitted on 02/02/17 for ETOH Dependence under the care of Dr. Berry. Patient verbalizes no known allergies, wishes to be full code, following a regular diet, placed on fall and seizure precautions, skin noted intact. Patient verbalizes past medical history of Anxiety and Sleep apnea. Patient currently uses personal CPap. Per endorsement, patient was given PRN Robitussin for cough with medication noted to be effective. Patient is set for discharge tomorrow 02/10/17. Last noted CIWA 4. All needs attended to promptly. Will continue to monitor.
--- NOTE | 2017-02-09 22:27 | NUR ---
PRN Medication Administration Patient noted to verbalize increased anxiety. PRN Vistaril administered as per order. Will continue to monitor.
--- NOTE | 2017-02-09 22:58 | NUR ---
Pt placed on Vision at this time settings CPAP PSV 12 and FIO2-30%. No resp. distress noted at this time. Pt to be monitored to be monitored throughout the shift. Pt apperats to be tolerating settings at this time.
--- NOTE | 2017-02-09 23:30 | NUR ---
PRN Medication Reassessment Patient is noted in bed, awake, alert and verbally responsive. Patient is able to verbalize medication was effective in minimizing anxiety. PRN Vistaril noted to be effective. Will continue to monitor.
[2017-02-10 00:15] VITALS: BP 134/79
[2017-02-10 04:05] VITALS: BP 131/69
--- NOTE | 2017-02-10 07:17 | NUR ---
End of Shift Patient is in bed sleeping. Breathing even and non labored. No signs of pain or discomfort noted. Patient is a 56 year old male admitted on 02/02/17 for ETOH Dependence under the care of Dr. Berry. No known allergies, Full Code, Regular Diet, placed on fall and seizure precautions, skin noted intact. Patient was given PRN Vistaril for increased anxiety with medication noted to be effective. Patient is set for discharge today 02/10/17. Patient slept a total of 4 hours. Last noted CIWA 4. All needs attended to promptly. Will endorse to continue plan of care as ordered.
--- NOTE | 2017-02-10 07:40 | NUR ---
STAR OF SHIFT Rcvd endorsement from ongoing nurse, client is a 56 y/o male admitted for alcohol withdrawal. last CIWA 4, client completed a 7 day extended Ativan taper, tolerated well. PRN Vistaril for anxiety, noted effective, he slept 4 hrs. Client is in room, a/o x 4, he is in RA c/ spO2 @ 95%, he presents with anxious mood, flat affect, tremors felt, not observed. Client reports feeling anxious due to discharge, but he is ready to continue with his treatment @ [facility] for 30 days. Discharge instructions discuss, client verbalized understanding, no inquiries made at this time. HOB 45 degrees. Call light within reach. Side rails x 2 up/padded. Will continue to monitor.
[2017-02-10 08:05] VITALS: BP 134/82
[2017-02-10 08:37] VITALS: BP 134/82
--- NOTE | 2017-02-10 08:49 | NUR ---
PRN Robitussin Plain Sugar Free 200mg PO administered for cough, will continue to monitor. Call light within reach.
--- NOTE | 2017-02-10 09:25 | NUR ---
Discharge note Client was admitted for alcohol withdrawal. Client has a recent CIWA of 3. client VS are WNL. LBM was 02/10/17. Client denies any SI/HI. Client verbalized his understanding of the discharge instructions. Client has no complaints at this time, he reports relief from cough after Robitussin. Client discharge instructions, prescriptions, and all belongings returned to client. All needs addressed at this time. Client ambulated off of unit, client left facility via [facility] for [facility].
== END 2017-02-10 09:25 | disposition other institution (70) | DRG 895 ==
LOC: SRC 18:16
PROVIDERS: ADMIT Internal Medicine; ATTEND Internal Medicine
PROC: HZ2ZZZZ Detoxification Services for Substance Abuse Treatment (ICD-10-PCS; principal; 2017-02-02)
PROC: HZ41ZZZ Group Counseling for Substance Abuse Treatment, Behavioral (ICD-10-PCS; 2017-02-03)
PROC: 5A09357 Assistance with Respiratory Ventilation, Less than 24 Consecutive Hours, Continuous Positive Airway Pressure (ICD-10-PCS; 2017-02-04)
PROC: HZ31ZZZ Individual Counseling for Substance Abuse Treatment, Behavioral (ICD-10-PCS; 2017-02-05)
DX: F10.232 Alcohol dependence with withdrawal with perceptual disturbance (principal); E87.2 Acidosis; D69.6 Thrombocytopenia, unspecified; E83.42 Hypomagnesemia; Z68.42 Body mass index [BMI] 45.0-49.9, adult; G62.1 Alcoholic polyneuropathy; K70.10 Alcoholic hepatitis without ascites; Y90.9 Presence of alcohol in blood, level not specified; D72.819 Decreased white blood cell count, unspecified; E87.6 Hypokalemia; G47.33 Obstructive sleep apnea (adult) (pediatric); Z80.0 Family history of malignant neoplasm of digestive organs; I15.9 Secondary hypertension, unspecified; E66.9 Obesity, unspecified; F14.90 Cocaine use, unspecified, uncomplicated; F31.9 Bipolar disorder, unspecified; R73.9 Hyperglycemia, unspecified; H53.9 Unspecified visual disturbance
CPT/HCPCS: 36415; 70030-TC; 80307; 82746; 83735; 84100; 85025; 86580; 86592; 86705; 86803; 87340; 87806; 94002; 94660; 97116; 97530; A4663; G0480; J3411; J3535; Q0162; Q0163